=== PATIENT | female | born 1980 | race Caucasian/White ===

== ENCOUNTER 2022-08-20 11:20 | Outpatient (CLI) | payer OTHER, SELFPAY ==
[2022-08-20 14:02] LABS: Albumin* 4.4 g/dL (3.3-5.0); Chloride* 107 mmol/L (96-114)
[2022-08-20 14:03] LABS: Potassium* 4.5 mmol/L (3.6-5.1); Sodium* 139 mmol/L (135-149)
[2022-08-20 14:05] LABS: Alanine Aminotransferase* 20 U/L (4-35); Alkaline Phosphatase* 56 U/L (40-150); Aspartate Amino Transferase* 20 U/L (12-35); Bilirubin Total* 0.4 mg/dL (0.1-1.5); Blood Urea Nitrogen* 11 mg/dL (5-24); Carbon Dioxide* 25 mmol/L (20-32); Creatinine* 0.6 mg/dL (0.5-1.5); Estimated Glomerular Filt Rate 113 ml/min; Glucose* 92 mg/dL (60-115)
[2022-08-20 14:06] LABS: Calcium* 9.3 mg/dL (8.4-10.6)
[2022-08-20 15:03] LABS: Vitamin D 25 Hydroxy* 34 ng/mL (30-80)
== END 2022-08-20 11:21 | disposition home or self-care (01) ==
PROVIDERS: Visit Provider Nurse Practitioner Family
DX: Z79.899 Other long term (current) drug therapy (principal); F41.9 Anxiety disorder, unspecified; F32.A Depression, unspecified; D64.9 Anemia, unspecified; N92.0 Excessive and frequent menstruation with regular cycle
CPT/HCPCS: 80053; 82306; 84443

== ENCOUNTER 2023-11-24 10:22 | Outpatient (CLI) | payer OTHER, SELFPAY | END 2023-11-24 10:23 | disposition home or self-care (01) | LOC: LKVREF 10:22 | PROVIDERS: PCP Emergency Medicine; Visit Provider Emergency Medicine | DX: Z01.818 Encounter for other preprocedural examination (principal) | CPT/HCPCS: 80048 ==

== ENCOUNTER 2024-10-04 20:13 | Outpatient (CLI) | payer OTHER, SELFPAY ==
--- OUTSIDE RECORDS SUMMARY | 2024-10-04 20:15 | XMS_ITS | Clinical Summary ---
Author Organization [facility] Address [address] [place] [address]. [place] [address] Care Team Providers Care Lean Leader Name Role Phone System, Provider Not In Primary Care Provider Un available Allergies No known active allergies Medications escitalopram (LEXAPRO) 20 MG tablet Take 20 mg by mouth daily Active ondansetron (ZOFRAN ODT) 4 MG ODT tab Take 4 mg by mouth every 6 hours as needed 4 Active ibuprofen (ADVIL/MOTRIN) 800 MG tabletIndication s:S/P laparoscopic hysterectomy Take 1 tablet (800 mg) by mouth every 6 hours as needed for other (mild and/or inflammatory pain) 30 tablet 4 Active oxyCODONE (ROXICODONE) 5 MG tabletIndication s:S/P laparoscopic hysterectomy Take 1-2 tablets (5-10 mg) by mouth every 4 hours as needed for moderate to severe pain 12 tablet 4 Active senna-docusate (SENOKOT-S/PERIC OLACE) 8.6-50 MG tabletIndication s:S/P laparoscopic hysterectomy Take 1-2 tablets by mouth 2 times daily 30 tablet 4 Active Active Problems Problem Noted Date Diagnosed Date S/P laparoscopic hysterectomy 02/22/2024 Iron deficiency anemia secondary to blood loss ( chronic) 02/14/2024 Immunizations Name Administration Dates Next Due HepA, Unspecified 01/16/2008 TDAP (Adacel,Boostrix) 01/16/2008 Td,adult,historic,unspecified 01/16/2008 Social History Tobacco Use Types Packs/Day Years Used Date Smoking Tobacco: Never Smokeless Tobacco: Never Tobacco Cessation:Counseling Given: Not Answered Alcohol Use Standard Drinks/Week Comments Not Currently 0 (1 standard drink = 0.6 oz pur e alcohol) Adolescent Education Answer Date Record ed Getting School Help Needed Not on file 11/03 Comments No Sex and Gender Information Value Date Recorded Sex Assigned at Not on file 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 Gender Identity Not on file Sexual Orientation Not on file Last Filed Vital Signs Vital Sign Reading Time Taken Comments Blood Pressure 123/85 02/23/2024 12:05 PM CDT Pulse 85 02/23/2024 1:50 PM CDT Temperature 36.8 C (98.3 F) 02/23/2024 12:05 PM CDT Respiratory Rate 16 02/23/2024 12:05 PM CDT Oxygen Saturation 99% 02/23/2024 1:50 PM CDT Inhaled Oxygen Concentration - - Weight 79.4 kg (175 lb) 02/22/2024 11:42 AM CDT Height 170.2 cm (5' 7) 02/22/2024 11:42 AM CDT Body Mass Index 27.41 02/22/2024 11:42 AM CDT Plan of Treatment Health Maintenance Due Date Last Done Comments ADVANCE CARE PLANNING 1978 ANNUAL REVIEW OF HM ORDERS 1978 CT COLONOGRAPHY 1978 FIT 1978 FLEX SIG 1978 YEARLY PREVENTIVE VISIT 1978 sDNA (Cologuard) 1978 COLONOSCOPY 1988 COLORECTAL CANCER SCREENING 1988 HIV SCREENING 1993 HEPATITIS C SCREENING 1996 HEPATITIS B IMMUNIZATION (1 of 3 - 19+ 3-dose series) 1997 PAP 1999 DTAP/TDAP/TD IMMUNIZATION (3 - Td or Tdap) 01/15/2018 01/16/2008, 01/16/2008 LIPID 2018 PHQ-2 (once per calendar year) 2023 COVID-19 Vaccine (4 - 2023-2 5 season) 2024 11/20/2021, 04/04/2021, 03/15/2021 INFLUENZA VACCINE (#1) 2024 MAMMO SCREENING 06/16/2026 06/16/2024 GLUCOSE 02/22/2027 02/23/2024, 11/03/2023, 07/07/2013 RSV VACCINE (1 - 1-dose 75+ series) 2053 HPV IMMUNIZATION Aged Out No longer e ligible based on patient's age to complete this topic MENINGITIS IMMUNIZATION Aged Out No l onger eligible based on patient's age to complete this topic Pneumococcal Vaccine: Pediatrics (0 to 5 Years) and At-Risk Patients (6 to 64 Years) Aged Out No longer eligible b ased on patient's age to complete this topic RSV MONOCLONAL ANTIBODY Aged Out No l onger eligible based on patient's age to complete this topic Procedures Procedure Name Priority Date/Time Associated Diagnosis Comments MA SCREENING BILATERAL W/ DAVY Routine 06/16/2024 9:07 AM CDT Visit for screening mammogram GLUCOSE BY METER Routine 02/23/2024 5:29 AM CDT from Last 3 Months or Most Recently Relevant to Health Maintenance Results * MA Screen Bilateral w/Davy (06/16/2024 9:07 AM CDT) Anatomical Region Laterality Modality Breast Bilateral Mammography Impressions 06/16/2024 9:21 AM CDT IMPRESSION: ACR BI-RADS Category 1: Negative BREAST CANCER SCREENING RECOMMENDATION: Routine yearly mammography beginning at age 40 or as discussed with your provider. The results and recommendations of this examination will be communicated to the patient. Gisele Barillas MD Narrative 06/16/2024 9:21 AM CDT BILATERAL FULL FIELD DIGITAL SCREENING MAMMOGRAM WITH TOMOSYNTHESIS Performed on: 06/16/24 No comparisons were made when reading this study. Technique: This study was evaluated with the assistance of Computer-Aided Detection. Breast Tomosynthesis was used in interpretation. Findings: The breasts are heterogeneously dense, which may obscure small masses. There is no radiographic evidence of malignancy. Amie Salazar MD IMG MAMMOGRAPHY ORDERABLES F inal Result * (ABNORMAL) Glucose by meter (02/23/2024 5:29 AM CDT) GLUCOSE BY METER POCT 116(H) 70 - 99 mg/dL 02/23/2024 5:35 AM CDT [facility] Blood, Capillary BLOOD SPECIMEN / Unknown 02/23/2024 5:29 AM CDT 02/23/2024 5:35 AM CDT Amie Salazar MD LAB - BEAKER POCT Final Resu lt [facility] POCT RESULTS [address] [place] [address] from Last 3 Months or Most Recently Relevant to Health Maintenance Insurance [employer] Address: [place] [address] [employer] Advance Directives For more information, please contact: [phone] * Full Code (Latest Code Status on File) Date Activated Date Inactivated Comments 02/22/2024 5:32 PM 02/23/2024 5:11 PM All basic an d advanced life-sustaining interventions are performed as appropriate Question Answer Comments Code status determined by: Unable to dis cuss and no AD/POLST on file; continue PREVIOUSLY ORDERED code status Care Teams Lean Leader Relationship Specialty Start Date End Date System, Provider Not In PCP - General Clinic 11/03/23
--- OUTSIDE RECORDS SUMMARY | 2024-10-04 20:16 | XMS_ITS | Clinical Summary ---
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 Temperature 37.2 C (99 F) 09/15/2019 3:21 PM ENGINEERING TEST MECHANIC Respiratory Rate - - Oxygen Saturation 100% 09/15/2019 3:21 PM ENGINEERING TEST MECHANIC Inhaled Oxygen Concentration - - Weight - - Height - - Body Mass Index - - Plan of Treatment Health Maintenance Due Date Last Done Comments Tdap 1989 Depression screening for age 12+ 1990 HIV for age 15-65 1993 BMI (ht and wt on same day) for age 18+ 1996 Hepatitis C screening for ag e 18-79 1996 Tetanus booster 1998 Pap test for age 21-65 1999 Colonoscopy through age 75 2023 Lipids for age 45-75 2023 Mammogram for age 45-75 2023 COVID-19 vaccine series (2023- season) 2024 Influenza for age 9-49 07/02/2024 Pneumococcal series for age 6-64 Aged Out No longer eligible based on patient's age to complete this topic Care Teams Supervisor [employer] Relationship Specialty Start Date End Date Lyssa Dos Santos MD PCP - General 05/18/08
--- OUTSIDE RECORDS SUMMARY | 2024-10-04 20:16 | XMS_ITS | Referral Summary ---
Author Organization [facility] Address [address] [place] [address]. 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 us Amie Salazar MD IMG MAMMOGRAPHY ORDERABLES F inal Result * (ABNORMAL) Glucose by meter (02/23/2024 5:29 AM CDT) GLUCOSE BY METER POCT 116(H) 70 - 99 mg/dL 02/23/2024 5:[address] [facility]ULTS Blood, Capillary BLOOD SPECIMEN / Unknown 02/23/2024 5:29 AM CDT 02/23/2024 5:35 AM CDT Amie Salazar MD LAB - BEAKER POCT Final Resu lt [facility] POCT RESULTS [address] [place] [address] from Last 3 Months or Most Recently Relevant to Health Maintenance Insurance [employer]ICE [employer] Advance Directives For more information, please contact: [phone] * Full Code (Latest Code Status on File) Date Activated Date Inactivated Comments 02/22/2024 5:32 PM 02/23/2024 5:11 PM All basic an d advanced life-sustaining interventions are performed as appropriate Question Answer Comments Code status determined by: Unable to dis cuss and no AD/POLST on file; continue PREVIOUSLY ORDERED code status Care Teams Senior Infrastructure Architect Relationship Specialty Start Date End Date System, Provider Not In PCP - General Clinic 11/03/23
--- NOTE | 2024-10-18 09:00 | W.PM.SLEEP ---
Sleep Study Details Details Interpreting Provider: Randall Date of Sleep Study: 10/04/24 Sleep Study Details: STUDY TYPE:? Home unattended ? BMI:? 26.6 ORDERING PROVIDER:Lamont Pereira INDICATION:? Concern about sleep apnea ? SLEEP SUMMARY:? 526 minutes monitored RESPIRATORY SUMMARY:? AHI 2.2, supine 6.3, right lateral 0.2, left lateral 1.4 Low oxygen 91 Snoring 21.6% PERIODIC LIMB MOVEMENTS OF SLEEP:? Not recorded CARDIAC:? 53-97, mean 66.2 beats per minute IMPRESSION:? 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 If sleep disorder strongly suspected then an in-lab study is recommended. RECOMMENDATION: See impression. The patient would also potentially benefit from a trial of nonsupine sleep.
== END 2024-10-04 20:14 | disposition home or self-care (01) ==
LOC: SLEEP 20:13
PROVIDERS: PCP Emergency Medicine; Visit Provider Otolaryngology
DX: G47.33 Obstructive sleep apnea (adult) (pediatric) (principal)
CPT/HCPCS: 95806